=== PATIENT | female | born 1960 | race Caucasian/White ===

== ENCOUNTER 2024-03-13 02:55 | Day surgery (SDC) | payer OTHER, SELFPAY ==
[2024-02-28 08:51] VITALS: BMI 32.0
[2024-03-13 08:12] VITALS: BP 136/74; PULSE 98; RESP 20; TEMP 36.4; O2SAT 98
[2024-03-13] MEDS: LACTATED RINGERS 1,000 ML 150 ML IV CONT (08:23)
--- NOTE | 2024-03-13 08:33 | WPDANESEPPF ---
Anes - Initial Pre Proc Eval Procedure: Operation Date: 03/13/24 09:30 Proposed Procedures p Colonoscopy - Red Marcano MD Date/Time: 03/13/24 08:33 Surgeon: Red Marcano MD Pre Op Diagnosis: hx colon polyps Patient Data Age: 64 Gender: F Height: 1.6 m Weight: 81.1 kg Last Vital Signs Temp 97.6 F 03/13/24 08:12 Pulse 98 03/13/24 08:12 Resp 20 03/13/24 08:12 BP 136/74 03/13/24 08:12 Pulse Ox 98 03/13/24 08:12 O2 Del Method Room Air 03/13/24 08:12 Allergies Allergy/AdvReac Type Severity Reaction Status Date / Time Sulfa (Sulfonamide Allergy Hives Verified 03/13/24 08:11 Antibiotics) Home Medications Medication Instructions Recorded Confirmed Type loratadine 10 mg tablet (Claritin) 10 mg PO DAILY 02/28/24 02/28/24 History Patient hx anesthesia problems: none Family hx anesthesia problems: none Results Review: All pre-operative results and documents have been reviewed as part of the pre-operative evaluation. [facility] Social History Social History Smoking status: Never smoker Substance use type: does not use Living arrangements: with family Spiritual care concerns: No Anes - Eval Final PreProcedure Day of Procedure 03/13/24 08:33 Patient weight: obese Heart: regular rate and rhythm Lungs: clear to auscultation Airway: Mallampati scale class II Neurological: alert and oriented Last oral intake: >/= 8 hours ASA classification: II Emergent: no Anesthetic plan: proceed Anesthesia type and monitoring: general GIVS and standard monitoring Results Review: All pre-operative results and documents have been reviewed as part of the pre-operative evaluation. Informed Consent: The patient's anesthetic plan and its attendant risks and benefits were discussed with the patient/family/POA. Questions were solicited and answers provided to the satisfaction of the patient/family/POA.
--- NOTE | 2024-03-13 08:48 | PM.HPGS ---
History of Present Illness History of Present Illness Consent: Risks, benefits, and alternatives have been discussed and questions answered. Patient agrees to proceed with procedure. Chief complaint: hx colon polyps Narrative: Wood Mott is a 64 year old female with colon polyp 7 years ago Review of Systems Review of Systems: All systems reviewed & are unremarkable except as noted in HPI and below PMFSH Past Medical History Medical History (Updated 03/13/24 @ 08:51 by Red Marcano MD) Colon polyp Social History Social History Smoking status: Never smoker Substance use type: does not use Living arrangements: with family Spiritual care concerns: No Meds Home Medications and Allergies Home Medications Medication Instructions Recorded Confirmed Type loratadine 10 mg tablet (Claritin) 10 mg PO DAILY 02/28/24 02/28/24 History Allergies Allergy/AdvReac Type Severity Reaction Status Date / Time Sulfa (Sulfonamide Allergy Hives Verified 03/13/24 08:11 Antibiotics) Vital Signs Vital Signs - 24 hr 03/13/24 08:12 Temperature 97.6 F Pulse Rate 98 Respiratory Rate 20 Blood Pressure 136/74 Pulse Oximetry 98 Oxygen Delivery Room Air Exam Const: General: comfortable and no acute distress HENMT: Face/Nose/Sinus: Normal nares present Eyes: General: appearance normal, both eyes and all related structures Neck: Neck: no JVD Resp: Auscultation: clear to auscultation bilaterally Cardio: Rate: regular rate Rhythm: regular rhythm GI: Inspection: non-distended GI Palp: Yes Soft to palpation Skin: General skin exam: normal color Neuro: General: gait normal Speech: normal speech Extrem: General: normal to inspection Psych: Mental Status: mental status grossly normal Assessment and Plan Assessment and plan (1) Colon polyp: Code(s): K63.5 - Polyp of colon Status: Acute Assessment and Plan: colonoscopy
[2024-03-13 09:05] VITALS: BP 107/64; PULSE 89; RESP 19; O2SAT 92
[2024-03-13 09:15] VITALS: BP 106/60; PULSE 91; RESP 17; O2SAT 94
[2024-03-13 09:25] VITALS: BP 125/76; PULSE 80; RESP 18; O2SAT 96
== END 2024-03-13 09:34 | disposition home or self-care (01) ==
PROVIDERS: PCP Family Medicine; Visit Provider Internal Medicine Gastroenterology
PROC: 0DJD8ZZ Inspection of Lower Intestinal Tract, Via Natural or Artificial Opening Endoscopic (ICD-10-PCS; CPT 45378; principal; 2024-03-13 09:30)
DX: Z12.11 Encounter for screening for malignant neoplasm of colon (principal); K64.8 Other hemorrhoids; E66.9 Obesity, unspecified; Z68.31 Body mass index [BMI] 31.0-31.9, adult; Z86.010 Personal history of colon polyps
CPT/HCPCS: 45378; J2704; J7120